=== PATIENT | male | born 1955 | race Two or more races ===

== ENCOUNTER 2023-05-11 15:51 | Emergency (ER) | payer OTHER, MEDICAID ==
[~2023-05-11] VITALS: Ht 175.3 cm; Wt 81.8 kg
[2023-05-11 16:11] VITALS: O2SAT 100
[2023-05-11] MEDS ORDERED: TRAM50TA2 PO (22:10)
[2023-05-11] MEDS ORDERED: MORPHINE SULFATE INJ 2 MG/ml SYRG IM ONE (22:15)
[2023-05-11] MEDS ORDERED: DexAMETHasone SOD PHOS 4 MG/1ML SDV INJ IM ONE (22:15)
[2023-05-11 23:15] VITALS: BP 130/63; PULSE 60; RESP 20
== END 2023-05-12 00:17 | disposition home or self-care (01) ==
LOC: EDBD 15:51 → ER 15:51
DX: M51.36 Other intervertebral disc degeneration, lumbar region (principal); M62.830 Muscle spasm of back; M16.11 Unilateral primary osteoarthritis, right hip; K40.90 Unilateral inguinal hernia, without obstruction or gangrene, not specified as recurrent; M54.41 Lumbago with sciatica, right side; I10 Essential (primary) hypertension
CPT/HCPCS: 72131; 73700; 93971; 96372; 99285; J1100; J2270